=== PATIENT | female | born 1950 | race Caucasian/White ===

== ENCOUNTER 2020-10-27 09:24 | Inpatient (IN) | payer OTHER, SELFPAY ==
[~2020-10-27] VITALS: Ht 162.6 cm; Wt 140.2 kg
[~2020-10-27 09:24] MED LIST: ASPI-1393 PO; DICL50TA9 PO; FURO-150 PO; OMEP40CA13 PO; ROPI0.5T PO; SIMV10TA2 PO
[2020-10-27 09:30] VITALS: BP_SYST 124
--- NOTE | 2020-10-27 09:30 | NUR ---
Placed in room 8 . Placed on monitor car operator, blood pressure machine and pulse oximeter. To gown for exam. Side rails up.
--- NOTE | 2020-10-27 09:40 | NUR ---
PT BIBA FROM [facility]. PT WAS FOUND TO HAVE RED OCCULT BLOOD COMING FROM HER RECTUM 1 HOUR PRIOR TO ARRIVAL PER FACILTY DOCUMENTATION. PT IS AAOX4, V/S STABLE. NO HX OF RECTAL BLEEING PER PT. PT REPORTS HAVING SURGURY LAST YEAR FOR "TWISTED BOWEL", HOWEVER SHE IS A POOR HISTORIAN AND CANNOT REMEMBER ANY DETAILS FURTHER. DENIES ANY PAIN UPON ARRIVAL
[2020-10-27] MEDS ORDERED: NACL 0.9% 1,000 ML IV ONE (09:45)
--- NOTE | 2020-10-27 09:45 | NUR ---
ER DR. NÚÑEZ AT THE BEDSIDE EVALUATING PT
--- NOTE | 2020-10-27 10:00 | NUR ---
# 22 gauge angiocath placed to L HAND. Use of asceptic technique. Opsite placed over site. Blood return noted. Flushed with 10 cc of normal saline. No evidence of infiltration noted. Patient tolerated well.
--- NOTE | 2020-10-27 10:20 | NUR ---
LAB AT THE BEDSIDE FOR BLOOD DRAW
[2020-10-27 10:37] LABS: BASOPHILS # (AUTO) 0.1 K/uL (0.0-0.2); BASOPHILS % (AUTO) 0.4 % (0.0-2.0); EOSINOPHILS % (AUTO) 0.1 % (0.0-4.0); HEMATOCRIT 52.3 % (36-48); LYMPHOCYTES # (AUTO) 1.2 K/uL (1.0-5.5); LYMPHOCYTES % (AUTO) 9.1 % (20.5-51.5); MEAN CORPUSCULAR HEMOGLOBIN 29 pg (27-31); MEAN CORPUSCULAR HGB CONC 33 % (32-36); MEAN CORPUSCULAR VOLUME 89 fL (79.0-98.0); MONOCYTES # (AUTO) 0.3 K/uL (0.0-1.0); MONOCYTES % (AUTO) 2.5 % (1.7-9.3); NEUTROPHILS # (AUTO) 11.9 K/uL (1.8-7.7); NEUTROPHILS % (AUTO) 87.9 % (40.0-70.0); PLATELET COUNT (AUTO) 211 K/uL (130-430); RED BLOOD CELL COUNT(AUTO) 5.86 MIL/uL (4.2-6.2); RED CELL DISTRIBUTION WIDTH 15.4 % (9.0-15.0); WHITE BLOOD COUNT (AUTO) 13.6 K/uL (4.8-10.8)
[2020-10-27 10:50] LABS: ANION GAP 8 (5-15); CHLORIDE 99 mmol/L (98-107); CREATININE 0.87 mg/dL (0.55-1.30); GLUCOSE 163 mg/dL (70-99); POTASSIUM 4.1 mmol/L (3.5-5.1); SODIUM SERUM 138 mmol/L (136-145); UREA NITROGEN, BLOOD 21 mg/dL (8-21)
[2020-10-27 10:56] LABS: ALANINE AMINOTRANSFERASE 108 U/L (12-78); ALBUMIN 2.6 g/dL (3.4-4.8); ASPARTATE AMINOTRANSFERASE 22 U/L (10-37); LACTATE DEHYDROGENASE 233 U/L (81-234); TOTAL BILIRUBIN 0.7 mg/dL (0.0-1.0)
[2020-10-27 11:01] LABS: PROTHROMBIN TIME 10.5 SECS (9.5-12.5)
[2020-10-27 11:27] LABS: FIBRINOGEN 465 mg/dL (200-400)
--- NOTE | 2020-10-27 11:30 | NUR ---
Patient transported to radiology via GURNEY, accompanied by STAFF.
[2020-10-27 11:44] LABS: C-REACTIVE PROTEIN QUANT 2.2 mg/dL (0-0.5)
--- NOTE | 2020-10-27 12:11 | NUR ---
ADMIT ORDERS RECEIVED FROM DR. KAUR
[2020-10-27] MEDS ORDERED: SPIR25TA PO (12:50)
[2020-10-27] MEDS ORDERED: MELA3TAB41 PO (12:50)
[2020-10-27] MEDS ORDERED: SIMV-43 PO (12:50)
[2020-10-27] MEDS ORDERED: ZINC50TA69 PO (12:50)
[2020-10-27] MEDS ORDERED: BISA-79 SUBLESI080 (12:50)
[2020-10-27] MEDS ORDERED: HYDR-4272 PO (12:50)
[2020-10-27] MEDS ORDERED: APIX5TAB4 PO (12:50)
[2020-10-27] MEDS ORDERED: MOM PO (12:50)
[2020-10-27] MEDS ORDERED: ONDA4TAB5 PO (12:50)
[2020-10-27] MEDS ORDERED: ACET325T53 PO (12:50)
[2020-10-27] MEDS ORDERED: AMIO100T4 PO (12:50)
[2020-10-27] MEDS ORDERED: LIDOINT TP (12:50)
[2020-10-27] MEDS ORDERED: ASCO500T20 PO (12:50)
[2020-10-27] MEDS ORDERED: LEVO100T PO (12:50)
[2020-10-27] MEDS ORDERED: VITD2000 PO (12:50)
[2020-10-27] MEDS ORDERED: CARV6.2554 PO (12:50)
[2020-10-27] MEDS ORDERED: CYAN100010 PO (12:50)
--- NOTE | 2020-10-27 12:50 | NUR ---
Medication reconciliation completed with information provided by [facility]. Any prior medication reconciliation on file was reviewed and corrected.
[2020-10-27] MEDS ORDERED: PANTOPRAZOLE SODIUM 40 MG/VIAL (PROTONIX) IVP ONE (13:15)
[2020-10-27 13:28] LABS: HEMATOCRIT 45.9 % (36-48); HEMOGLOBIN 14.9 g/dL (12.0-16.0)
[2020-10-27 13:30] VITALS: BP_SYST 152
--- NOTE | 2020-10-27 13:30 | NUR ---
ADMISSION NOTE: Received patient from ER via gurreagan. Patient admitted with diagnosis of . Patient is awake, alert, oriented X4. Patient oriented to hospital room, call light, toileting, pain management and safety-teach back done. Patient informed that Yoseph will be her nurse and that their room number is 110B. Personal belongings checked and Belongings List documented. Call light within reach.
--- NOTE | 2020-10-27 13:40 | NUR ---
Patient will be admitted to care of Dr Gates . Admitted to Tele unit. Will go to room 110B . Belongings list completed. Complete and up to date summary report printed. SBAR report to be given at bedside with opportunity for questions.
[2020-10-27 13:59] VITALS: BP_SYST 152
--- NOTE | 2020-10-27 14:00 | NUR ---
INITIAL NOTES: RECEIVED PATIENT FROM ER. PATIENT IS AWAKE AND ALERT x4 LAYING DOWN IN BED. PATIENT DENIES ANY PAIN AT THE MOMENT. PATIENT IS TOLERATING OXYGEN ON ROOM AIR WITH NO SIGNS OF DISTRESS OR SHORTNESS OF BREATH NOTED. IV SITE IS PATENT WITH NO SIGNS OF INFILTRATION NOTED. PATIENT IN STABLE CONDITION. SAFETY, FALL, AND ASPIRATION PRECAUTIONS ARE IN PLACE. BED LOCKED IN LOWEST POSITION WITH CALL LIGHT IN REACH. WILL CONTINUE TO MONITOR PATIENT FOR ANY CHANGES.
[2020-10-27] MEDS: D5NS 1,000 ML IV SCH ×2 (14:06→15:58)
--- NOTE | 2020-10-27 15:14 | NUR ---
FAMILY: LEFT MESSAGE WITH PATIENT'S DAUGHTER JINA TO CALL US BACK. WILL AWAIT HER CALL. Addendum: 10/27/20 at 1639 by Donna Brush RN 1620: SPOKE WITH DAUGHTER JINA AND INFORMED HER OF PATIENT'S STATUS. ANSWERED ALL QUESTIONS TO THE BEST OF MY ABILITY. WILL CONTINUE TO UPDATE FAMILY.
[2020-10-27 16:31] VITALS: BP_SYST 143
--- NOTE | 2020-10-27 17:56 | NUR ---
CONSULTATION PAGED/CALLED: Reason for Consultation: GI BLEED Person Who was Notified: IDA Consulting Physician: DR. MONGE Core Analyst Specialty: GI Ordering Physician: DR. KAUR
--- NOTE | 2020-10-27 18:36 | NUR ---
CLOSING NOTES PATIENT IS AWAKE AND ALERT x4 LAYING DOWN IN BED. PATIENT DENIES ANY PAIN AT THE MOMENT. PATIENT IS TOLERATING OXYGEN ON ROOM AIR WITH NO SIGNS OF DISTRESS OR SHORTNESS OF BREATH NOTED. IV SITE IS PATENT WITH NO SIGNS OF INFILTRATION NOTED. PATIENT IN STABLE CONDITION. SAFETY, FALL, AND ASPIRATION PRECAUTIONS REMAINED IN PLACE. BED LOCKED IN LOWEST POSITION WITH CALL LIGHT IN REACH. WILL ENDORSE TO NIGHT RN.
[2020-10-27 19:58] LABS: HEMOGLOBIN 13.7 g/dL (12.0-16.0)
[2020-10-27 20:00] VITALS: BP_SYST 119
--- NOTE | 2020-10-27 20:00 | NUR ---
Opening notes Pt AAOx3, VSS, afebrile. Pt has active rectal bleed, which pt states getting better. IVF infusing at ordered rate L. hand 22G no s/s infiltration. Pt repositions in bed. Call light within reach. Bed low, locked, siderails up x3. Safety maintained. To monitor.
[2020-10-27] MEDS: PANTOPRAZOLE SODIUM 40 MG/VIAL (PROTONIX) IVP SCH (20:54)
[2020-10-27] MEDS: AMIODARONE HCL 200 MG TABLET PO SCH ×2 (20:56→22:13)
[2020-10-27] MEDS: SIMVASTATIN 10 MG TABLET PO SCH ×2 (20:57→22:12)
[2020-10-27] MEDS: CARVEDILOL 6.25 MG TABLET (COREG) PO SCH ×2 (20:57→22:14)
--- NOTE | 2020-10-27 21:05 | NUR ---
MD rounds Dr. Castillo at bedside to assess pt.
[2020-10-28] MEDS: D5NS 1,000 ML IV SCH ×2 (01:19→09:15)
--- NOTE | 2020-10-28 01:20 | NUR ---
Rounds Pt awake, no s/s distress noted. Call light within reach. To monitor.
[2020-10-28 01:22] VITALS: BP_SYST 126
--- NOTE | 2020-10-28 01:50 | NUR ---
Spoke w/ lab Spoke w/ Maggie re the H/H blood draw (Q6) for 99.
[2020-10-28 02:29] LABS: HEMATOCRIT 39.1 % (36-48); HEMOGLOBIN 12.8 g/dL (12.0-16.0)
[2020-10-28] MEDS: LEVOTHYROXINE SODIUM 0.1 MG TABLET PO SCH (06:43)
--- NOTE | 2020-10-28 06:45 | NUR ---
Closing notes Pt alert, awake, no s/s distress noted. Pt called c/o rectal bleeding. Checked linen, it was dry. IVF infusing at ordered rate L. hand 22G no s/s infiltration. Pt reposition in bed. Call light within reach. Bed low, locked, siderails up x3. Safety maintained. To endorse to AM nurse.
--- NOTE | 2020-10-28 07:30 | NUR ---
OPENING NOTES: PATIENT IS AWAKE AND ALERT x4 LAYING DOWN IN BED. PATIENT DENIES ANY PAIN AT THE MOMENT. PATIENT IS TOLERATING OXYGEN ON ROOM AIR WITH NO SIGNS OF DISTRESS OR SHORTNESS OF BREATH NOTED. IV SITE IS PATENT WITH NO SIGNS OF INFILTRATION NOTED AND RUNNING FLUIDS ORDERED. PATIENT IN STABLE CONDITION. SAFETY, FALL, AND ASPIRATION PRECAUTIONS ARE IN PLACE. BED LOCKED IN LOWEST POSITION WITH CALL LIGHT IN REACH. WILL CONTINUE TO MONITOR PATIENT FOR ANY CHANGES.
[2020-10-28 07:53] VITALS: BP_SYST 141
--- NOTE | 2020-10-28 08:00 | NUR ---
OPENING NOTES PATIENT IS ALERT AND ORIENTED X4. RESTING IN BED COMFORTABLY. NO SIGNS OF RESPIRATORY DISTRESS OR SHORTNESS OF BREATH. ON ROOM AIR AND TOLERATING WELL. INCONTINENT OF BLADDER AND BOWEL. IV IS PATENT. ALL NEEDS MET. BED LOCKED AND IN LOWEST POSITION. CALL LIGHT WITHIN REACH. WILL CONTINUE TO MONITOR.
[2020-10-28] MEDS: PANTOPRAZOLE SODIUM 40 MG/VIAL (PROTONIX) IVP SCH ×2 (08:36→21:00)
[2020-10-28] MEDS: AMIODARONE HCL 200 MG TABLET PO SCH ×2 (08:37→21:00)
[2020-10-28] MEDS: CARVEDILOL 6.25 MG TABLET (COREG) PO SCH ×2 (08:37→21:00)
[2020-10-28 09:04] LABS: HEMATOCRIT 36.6 % (36-48)
--- NOTE | 2020-10-28 09:25 | NUR ---
FAMILY: SPOKE WITH DAUGHTER JINA AND UPDATED HER ON PATIENT'S STATUS. REQUESTED HER TO BRING PATIENT SOME BELONGINGS. ANSWERED ALL QUESTIONS TO THE BEST OF MY ABILITY. WILL CONTINUE TO UPDATE HER.
[2020-10-28] MEDS ORDERED: MAGNESIUM CITRATE 300 ML ORAL SOLUTION PO ONE (09:30)
[2020-10-28] MEDS: FUROSEMIDE 20 MG TABLET PO SCH (09:30)
--- NOTE | 2020-10-28 09:56 | NUR ---
Nutrition Update Black Scale 15 noted. Pt admitted for GI bleed. Diet: NPO BMI: 53.0 kg/m2 RD to follow per nutrition care standards.
[2020-10-28 12:01] VITALS: BP_SYST 100
[2020-10-28 13:41] LABS: HEMATOCRIT 34.2 % (36-48); HEMOGLOBIN 11.3 g/dL (12.0-16.0)
[2020-10-28 16:18] VITALS: BP_SYST 122
[2020-10-28] MEDS ORDERED: BISACODYL 5 MG TABLET.DR (DULCOLAX) PO ONE (17:00)
[2020-10-28] MEDS ORDERED: GOLYTELY / COLYTE SOLUTION 4 LITERS PO ONE (18:00)
--- NOTE | 2020-10-28 18:56 | NUR ---
CLOSING NOTES: PATIENT IS AWAKE AND ALERT x4 LAYING DOWN IN BED. PATIENT DENIES ANY PAIN AT THE MOMENT. PATIENT IS TOLERATING OXYGEN ON ROOM AIR WITH NO SIGNS OF DISTRESS OR SHORTNESS OF BREATH NOTED. IV SITE IS INFILTRATED. ATTEMPTED TO INSERT NEW IV TWICE AND UNSUCCESSFUL. WILL ENDORSE IV INSERTION TO ONCOMING DRAMATIC ART TEACHER NURSE. PATIENT IN STABLE CONDITION. SAFETY, FALL, AND ASPIRATION PRECAUTIONS REMAINED IN PLACE THROUGHOUT THE SHIFT. BED LOCKED IN LOWEST POSITION WITH CALL LIGHT IN REACH. WILL ENDORSE PATIENT CARE TO ONCOMING DRAMATIC ART TEACHER NURSE.
[2020-10-28 19:00] VITALS: BP_SYST 129
[2020-10-28 19:58] LABS: HEMATOCRIT 33.1 % (36-48)
[2020-10-28 20:00] VITALS: BP_SYST 129
[2020-10-28] MEDS: NACL 0.9% 1,000 ML IV SCH (20:00)
[2020-10-28] MEDS: roPINIRole HCL 0.25 MG ( REQUIP )TABLET PO SCH (21:00)
[2020-10-28] MEDS: SIMVASTATIN 10 MG TABLET PO SCH (21:00)
[2020-10-29 02:20] VITALS: BP_SYST 102
[2020-10-29 03:45] LABS: HEMATOCRIT 30.2 % (36-48)
[2020-10-29] MEDS ORDERED: LEVOTHYROXINE SODIUM 0.05 MG TABLET ONE (06:57)
--- NOTE | 2020-10-29 07:29 | NUR ---
Nutrition Update Black Scale 13 noted. Pt admitted for GI bleed Diet: NPO BMI: 53 kg/m2 RD to follow per nutrition care standards.
--- NOTE | 2020-10-29 07:45 | NUR ---
am notes pt stable not in acute distress. scheduled for colonoscopy. night nurse started tap water enema around 0730 . pt output is not clear yet. vitals stable. safety and fall precautions maintained. ivf infusing well iv on rt hand #22. patent. no s/s of infiltartion noted. will conitnue ot monitor
[2020-10-29] MEDS: LEVOTHYROXINE SODIUM 0.1 MG TABLET PO SCH (07:55)
[2020-10-29 08:10] VITALS: BP_SYST 117
[2020-10-29 08:26] LABS: HEMATOCRIT 30.7 % (36-48); HEMOGLOBIN 10.1 g/dL (12.0-16.0)
--- NOTE | 2020-10-29 08:30 | NUR ---
tap water enema tap water enema given as ordered x2. pt output clear mixed with some red color liquid stool.pt still have active rectal bleeding.pt cleaned and linen changed. kept comfortable.
[2020-10-29] MEDS ORDERED: SIMETHICONE 40 MG/0.6 ML ML ONE (08:56)
[2020-10-29] MEDS ORDERED: MEPERIDINE HCL/PF 100 MG/ML AMP ONE (08:57)
[2020-10-29] MEDS ORDERED: MIDAZOLAM HCL 5 MG/5 ML VIAL ONE (08:58)
[2020-10-29] MEDS ORDERED: fentaNYL CITRATE/PF 100 MCG/2 ML AMP ONE ×2 (08:59→09:31)
[2020-10-29] MEDS ORDERED: BISACODYL 5 MG TABLET.DR (DULCOLAX) PO ONE ×2 (10:00→17:00)
[2020-10-29] MEDS ORDERED: GOLYTELY / COLYTE SOLUTION 4 LITERS PO ONE (10:00)
[2020-10-29] MEDS ORDERED: COMMUNICATION ORDER XX ONE (10:30)
--- NOTE | 2020-10-29 10:30 | NUR ---
md rounds dr tinsley here. seen pt. notified that pt still have active rectal bleeding . pt rescheduled for colonoscopy for tomorrow
[2020-10-29] MEDS ORDERED: FUROSEMIDE 20 MG TABLET ONE (10:44)
[2020-10-29] MEDS: PANTOPRAZOLE SODIUM 40 MG/VIAL (PROTONIX) IVP SCH ×2 (10:49→20:58)
[2020-10-29] MEDS: AMIODARONE HCL 200 MG TABLET PO SCH ×2 (10:55→20:57)
[2020-10-29] MEDS: CARVEDILOL 6.25 MG TABLET (COREG) PO SCH ×2 (10:56→20:57)
[2020-10-29] MEDS: FUROSEMIDE 20 MG TABLET PO SCH (10:56)
--- NOTE | 2020-10-29 11:38 | NUR ---
Dietitian Recommendations *Recommend: advance diet when medically appropriate. (Cardiac diet) *Assess need for supplement during F/U. Please see Nutritional Assessment for details. CINDY, BRENDEN
[2020-10-29 12:00] VITALS: BP_SYST 116
[2020-10-29 15:42] LABS: HEMATOCRIT 31.3 % (36-48); HEMOGLOBIN 10.4 g/dL (12.0-16.0)
[2020-10-29 16:00] VITALS: BP_SYST 112
[2020-10-29] MEDS ORDERED: GOLYTELY / COLYTE SOLUTION 4 LITERS PO SCH (16:00)
--- NOTE | 2020-10-29 17:00 | NUR ---
PT STABLE NOT IN ACUTE DISTRESS. DRINKING GOLYTELY ORDERED. IVF INFUSING WELL. KEPPT COMFORTABLE WILL CONITNUE TO MONITOR
[2020-10-29] MEDS: NACL 0.9% 1,000 ML IV SCH (17:02)
--- NOTE | 2020-10-29 19:30 | NUR ---
PT STABLE NOT IN ACUTE DISTRESS. DRINKING GOLYTELY ORDERED. IVF INFUSING WELL. KEPT COMFORTABLE . SAFETY FALL PRECAUTION INPLACE. KEPT COMFORTABLE REPORT GIVEN TO NIGHT NURSE..
[2020-10-29 20:03] VITALS: BP_SYST 127
[2020-10-29] MEDS: SIMVASTATIN 10 MG TABLET PO SCH (20:53)
[2020-10-29] MEDS: roPINIRole HCL 0.25 MG ( REQUIP )TABLET PO SCH (20:56)
[2020-10-29 22:18] LABS: HEMATOCRIT 32.1 % (36-48); HEMOGLOBIN 10.7 g/dL (12.0-16.0)
[2020-10-30] VITALS: BP_SYST 121
[2020-10-30] MEDS ORDERED: SIMETHICONE 40 MG/0.6 ML ML ONE (08:01)
[2020-10-30] MEDS ORDERED: fentaNYL CITRATE/PF 100 MCG/2 ML AMP ONE (08:01)
[2020-10-30] MEDS ORDERED: MIDAZOLAM HCL 5 MG/5 ML VIAL ONE (08:02)
[2020-10-30] MEDS: CARVEDILOL 6.25 MG TABLET (COREG) PO SCH ×2 (09:00→20:52)
[2020-10-30] MEDS: AMIODARONE HCL 200 MG TABLET PO SCH ×2 (09:00→20:55)
[2020-10-30] MEDS: PANTOPRAZOLE SODIUM 40 MG/VIAL (PROTONIX) IVP SCH ×2 (09:26→20:50)
[2020-10-30] MEDS ORDERED: FUROSEMIDE 20 MG TABLET ONE ×2 (09:38→10:08)
[2020-10-30] MEDS: FUROSEMIDE 20 MG TABLET PO SCH (09:49)
[2020-10-30 10:28] VITALS: BP_SYST 117
[2020-10-30 12:00] VITALS: BP_SYST 105
--- NOTE | 2020-10-30 12:40 | NUR ---
PATIENT A&OX4 DENIES PAIN AT THE MOMENT. PLACED NEW PIV TO LEFT FOREARM 24G C/D/I. FINISHED MAJORITY OF GOLYTLY HAS LIGHT BROWN WATERY BM X3. TOOK ALL MORNING MEDICATIONS WITH OUT ISSUES HELD BP MEDICATIONS, WAS 117/64. PATIENT TAKEN TO OR AT 1240 FOR COLONOSCOPY.
[2020-10-30] MEDS ORDERED: MINERAL OIL 30 ML UDC PO ONE (14:15)
[2020-10-30] MEDS ORDERED: MINERAL OIL 133 ML ENEMA RC ONE (14:15)
[2020-10-30 14:30] VITALS: BP_SYST 132
--- NOTE | 2020-10-30 14:30 | NUR ---
Post colonoscopy with moderate sedation alert/oriented x4 no rectal bleeding vitals sign stable , soft bland diet served safety/fall precaution initiated.,endorsed to Agata.
--- NOTE | 2020-10-30 15:20 | NUR ---
RECEIVED REPORT FROM DANYA, MY PATIENT RETURNED FROM COLONOSCOPY VSS NO RECTAL BLEEDING. FINDINGS PATIENT HAS DIVERTICULITIS , HEMORID AND ULCER. CURRENTLY IN BED EATING WITH NO S/S OF DISTRESS.
[2020-10-30 16:51] VITALS: BP_SYST 110
--- NOTE | 2020-10-30 17:30 | NUR ---
Paged GI Dr. Vasquez extrusion former for clearance for discharge
[2020-10-30] MEDS: NACL 0.9% 1,000 ML IV SCH ×2 (18:06→21:17)
[2020-10-30] MEDS: LEVOTHYROXINE SODIUM 0.1 MG TABLET PO SCH (18:07)
[2020-10-30] MEDS ORDERED: ANURH RC (18:10)
[2020-10-30] MEDS ORDERED: POLY17PO4 PO (18:10)
--- NOTE | 2020-10-30 19:35 | NUR ---
OPENING NOTES RECEIVED PATIENT'S BEDSIDE REPORT FROM DAY SHIFT RN. PATIENT IS ALERT AND ORIENTED X4. RESTING IN BED COMFORTABLY. NO SIGNS OF RESPIRATORY DISTRESS OR SHORTNESS OF BREATH. ON ROOM AIR AND TOLERATING WELL. INCONTINENT OF BLADDER AND BOWEL. REQUESTING TO BE CLEANED. IV IS PATENT. NO IVF INFUSING AT THIS TIME. BED LOCKED AND IN LOWEST POSITION. CALL LIGHT WITHIN REACH. WILL CONTINUE TO MONITOR.
[2020-10-30 20:00] VITALS: BP_SYST 128
[2020-10-30] MEDS: roPINIRole HCL 0.25 MG ( REQUIP )TABLET PO SCH (20:51)
[2020-10-30] MEDS: SIMVASTATIN 10 MG TABLET PO SCH (20:55)
--- NOTE | 2020-10-30 21:00 | NUR ---
MED PASS: SCHEDULED EVENING MEDS GIVEN TO PATIENT. TOLERATED TAKING HER MEDS WELL. NO S/S ACUTE DISTRESS AT THIS TIME. WILL CONTINUE TO MONITOR PATIENT.
--- NOTE | 2020-10-30 22:45 | NUR ---
PATIENT REPORTS BACK PAIN. INSTRUCTED PATIENT TO TRY TO REPOSITION AND DEEP BREATHING. WILL MONITOR PATIENT'S PAIN LEVEL.
--- NOTE | 2020-10-30 23:00 | NUR ---
CALLED AND LEFT A MESSAGE.
[2020-10-31 01:37] VITALS: BP_SYST 123
--- NOTE | 2020-10-31 02:39 | NUR ---
PT'S IV IS INFILTRATED. ASKED PATIENT IF IT IS OKAY TO START A NEW IV. PATIENT REFUSED.
[2020-10-31] MEDS ORDERED: LEVOTHYROXINE SODIUM 0.1 MG TABLET PO ONE (06:45)
--- NOTE | 2020-10-31 06:56 | NUR ---
CLOSING NOTE: PATIENT IS AWAKE, MORNING MED GIVEN. NO S/S ACUTE DISTRESS NOTED. ALL NEEDS MET. SAFETY ,FALL, AND CONTACT PRECAUTIONS IN PLACE. CALL LIGHT IS WITH PATIENT. WILL ENDORSE PATIENT CARE TO DAY SHIFT RN.
--- NOTE | 2020-10-31 07:40 | NUR ---
OPENING NOTES PT AWAKE, ALERT, AND ORIENTED. NONLABORED BREATHING NOTED ON ROOM AIR. IV LINE INTACT AND PATENT, NO SIGNS OF INFILTRATION NOTED, FLUIDS RUNNING ORDERED. NO ACUTE DISTRESS NOTED. ALL NEEDS MET. CALL LIGHT IN REACH. FALL AND ASPIRATION PRECAUTIONS IN PLACE. CONTINUE TO MONITOR.
[2020-10-31 08:00] VITALS: BP_SYST 118
[2020-10-31] MEDS ORDERED: MINERAL OIL 133 ML ENEMA RC ONE (08:30)
[2020-10-31] MEDS ORDERED: FUROSEMIDE 20 MG TABLET ONE (08:52)
[2020-10-31] MEDS: PANTOPRAZOLE SODIUM 40 MG/VIAL (PROTONIX) IVP SCH (09:04)
[2020-10-31] MEDS: FUROSEMIDE 20 MG TABLET PO SCH (09:20)
[2020-10-31] MEDS: AMIODARONE HCL 200 MG TABLET PO SCH (09:21)
[2020-10-31] MEDS: CARVEDILOL 6.25 MG TABLET (COREG) PO SCH (09:21)
--- NOTE | 2020-10-31 09:26 | NUR ---
ROUTINE MEDS ADMINISTERED ORDERED PER MD, EDUCATION GIVEN, TOLERATED WELL. CONTINUE TO MONITOR.
--- NOTE | 2020-10-31 10:32 | NUR ---
ADMINISTERED ENEMA ORDERED PER MD, EDUCATION GIVEN, TOLERATED WELL. WILL MONITOR FOR BM.
--- NOTE | 2020-10-31 11:30 | NUR ---
NO BM NOTED, PAGED DR. LIZ, SPOKE TO CHLOE
--- NOTE | 2020-10-31 11:59 | NUR ---
SPOKE TO DR. LIZ REGARDING PT UNABLE TO HAVE BM AT THIS TIME. RECEIVED ORDERS, VERIFIED, AND CARRIED OUT.
[2020-10-31] MEDS ORDERED: MINERAL OIL 30 ML UDC PO ONE (12:00)
[2020-10-31] MEDS ORDERED: POLYETHYLENE GLYCOL 3350, 17 GM/ POWD.PACK PO ONE (12:00)
--- NOTE | 2020-10-31 12:00 | NUR ---
VERBALIZED TO DR. LIZ THAT PT HAS A D/C ORDER TO GO BACK TO [facility] MD VERBALIZED UNDERSTANDING. NO NEW ORDERS RECEIVED AT THIS TIME.
[2020-10-31 12:32] VITALS: BP_SYST 99
--- NOTE | 2020-10-31 14:22 | NUR ---
ADMINISTERED ROUTINE MEDS ORDERED PER MD, EDUCATION GIVEN, TOLERATED WELL. CONTINUE TO MONITOR
[2020-10-31 14:58] VITALS: BP_SYST 135
--- NOTE | 2020-10-31 16:40 | NUR ---
D/C Patient Patient given medication reconciliation form and D/C instructions. Exit Care provided. Patient verbalized understanding. MD discussed with patient the results and treatment provided. Patient in stable condition, ID band removed. IV catheter removed, intact and dressing applied, no active bleeding. Patient educated on pain management. All belongings sent with patient.
[2020-10-31 16:54] VITALS: BP_SYST 115
[2020-11-01] MEDS ORDERED: LEVOTHYROXINE SODIUM 0.1 MG TABLET PO SCH (07:00)
[2020-11-01] MEDS ORDERED: POLYETHYLENE GLYCOL 3350, 17 GM/ POWD.PACK PO SCH (09:00)
== END 2020-10-31 13:30 | DRG 377 ==
LOC: SED 09:24 → STU 12:12 → SMU 10-29 10:48
PROVIDERS: ADMIT Internal Medicine Hospice and Palliative Medicine; ATTEND Internal Medicine Hospice and Palliative Medicine
PROC: 0DJD8ZZ Inspection of Lower Intestinal Tract, Via Natural or Artificial Opening Endoscopic (ICD-10-PCS; principal; 2020-10-29 09:30)
PROC: 0DBE8ZX Excision of Large Intestine, Via Natural or Artificial Opening Endoscopic, Diagnostic (ICD-10-PCS; 2020-10-30)
DX: K57.31 Diverticulosis of large intestine without perforation or abscess with bleeding (principal); E43 Unspecified severe protein-calorie malnutrition; K62.6 Ulcer of anus and rectum; Z68.43 Body mass index [BMI] 50.0-59.9, adult; I48.91 Unspecified atrial fibrillation; I27.20 Pulmonary hypertension, unspecified; E66.01 Morbid (severe) obesity due to excess calories; I10 Essential (primary) hypertension; M19.90 Unspecified osteoarthritis, unspecified site; K52.89 Other specified noninfective gastroenteritis and colitis; Z96.659 Presence of unspecified artificial knee joint; Z96.649 Presence of unspecified artificial hip joint; K56.41 Fecal impaction; K64.8 Other hemorrhoids; Z79.01 Long term (current) use of anticoagulants
CPT/HCPCS: 36415; 45378; 45380; 71045; 76376; 80053; 82728; 83605; 83615-TC; 83880; 84484; 85018-TC; 85025; 85379; 85384-TC; 85610-TC; 85730-TC; 86140; 87040-TC; 87081; 88305; 93005; 96361; 96374; C9113; G0378; J2175; J2250; J3010; J7030; J7042